=== PATIENT | female | born 1945 | race Asian ===

== ENCOUNTER 2019-10-14 00:17 | Emergency (ER) | payer MEDICAID, MEDICARE, OTHER ==
[~2019-10-14] VITALS: Ht 154.9 cm; Wt 71.8 kg
[2019-10-14] MEDS ORDERED: RANI150T7 PO (00:38)
[2019-10-14] MEDS ORDERED: LOSA50TA64 PO (00:38)
[2019-10-14] MEDS ORDERED: NITR0.4T50 SL (00:38)
[2019-10-14] MEDS ORDERED: NPH,100V SQ (00:38)
[2019-10-14] MEDS ORDERED: VITAD400 PO (00:38)
[2019-10-14] MEDS ORDERED: DILT120C43 PO (00:38)
[2019-10-14] MEDS ORDERED: ATOR20TA86 PO (00:38)
[2019-10-14] MEDS ORDERED: ALBU8HFA NASAL (00:38)
[2019-10-14] MEDS ORDERED: PRED5DRO25 OU (00:38)
[2019-10-14 00:57] LABS: GLUCOSE,POINT OF CARE 263 MG/DL (70-110)
[2019-10-14] MEDS ORDERED: MAG HYDROX/AL HYDROX/SIMETH 30 ML SUSP UDCUP PO ONE (01:15)
[2019-10-14] MEDS ORDERED: FAMOTIDINE 10 MG/ML 2 ML VIAL IVP ONE (01:15)
[2019-10-14 01:24] LABS: BASOPHILS % (AUTO) 0.9 % (0.0-2.0); EOSINOPHILS % (AUTO) 3.5 % (1.0-6.0); HEMATOCRIT 42.4 % (36-46); HEMOGLOBIN 14.1 g/dL (12.0-16.0); LYMPHOCYTES # (AUTO) 2.1 K/uL (1.0-4.8); LYMPHOCYTES % (AUTO) 31.3 % (22.0-44.0); MEAN CORPUSCULAR HEMOGLOBIN 30.7 pg (26.0-34.0); MEAN CORPUSCULAR HGB CONC 33.2 G/dL (31.0-37.0); MEAN CORPUSCULAR VOLUME 93 fL (80-100); MONOCYTES # (AUTO) 0.5 K/uL (0.1-1.0); MONOCYTES % (AUTO) 7.4 % (2.0-9.0); NEUTROPHILS # (AUTO) 3.8 K/uL (1.8-7.7); NEUTROPHILS % (AUTO) 56.9 % (40.0-70.0); PLATELET COUNT (AUTO) 194 K/uL (150-450); RED BLOOD CELL COUNT(AUTO) 4.58 MIL/uL (4.00-5.20); RED CELL DISTRIBUTION WIDTH 13.5 % (11.5-14.5)
[2019-10-14 01:37] LABS: PROTHROMBIN TIME 9.8 SEC (9.4-11.6)
[2019-10-14 01:50] LABS: CALCIUM, TOTAL 9.2 mg/dL (8.8-10.5); CREATININE 1.11 mg/dL (0.60-1.30); POTASSIUM 4.8 mmol/L (3.5-5.1)
[2019-10-14 01:56] LABS: ALBUMIN 3.2 g/dL (3.4-5.0); BILIRUBIN,TOTAL 0.2 mg/dL (0.1-1.0); TOTAL PROTEIN, SERUM 7.2 g/dL (6.4-8.2)
[2019-10-14] MEDS ORDERED: NITROGLYCERIN 0.4 MG SUBLINGUAL TABLET #25 SL ONE (02:15)
[2019-10-14] MEDS ORDERED: LOSARTAN POTASSIUM 50 MG TABLET PO ONE (02:15)
[2019-10-14 02:41] LABS: APPEARANCE,URINE CLEAR (CLEAR); BILIRUBIN,URINE NEGATIVE (NEGATIVE); GLUCOSE, URINE (UA) >=1000 mg/dL (NEGATIVE); KETONES,URINE NEGATIVE (NEGATIVE); LEUKOCYTE ESTERASE ,URINE NEGATIVE (NEGATIVE); NITRATE,URINE NEGATIVE (NEGATIVE); OCCULT BLOOD,URINE TRACE (NEGATIVE); PH,URINE 6.5 (5.0-8.0); PROTEIN,URINE SEE CONFIRM (NEGATIVE); UROBILINOGEN,URINE 0.2 mg/dL (<=1.0)
[2019-10-14 02:55] LABS: BACTERIA,URINE Rare /HPF (None Seen); RBC,URINE 0-2 /HPF (0-2); SQUAMOUS EPITHELIAL CELL,UR Few /LPF (None Seen); WBC,URINE 0-2 /HPF (0-5)
[2019-10-14 02:56] LABS: SULFOSALICYLIC ACID,URINE 2+ (Negative)
[2019-10-14 02:58] VITALS: BP 180/72
== END 2019-10-14 03:35 | disposition short-term general hospital (02) ==
LOC: EMS 00:18
DX: R07.9 Chest pain, unspecified (principal); F17.210 Nicotine dependence, cigarettes, uncomplicated; J45.909 Unspecified asthma, uncomplicated; I25.10 Atherosclerotic heart disease of native coronary artery without angina pectoris; E11.9 Type 2 diabetes mellitus without complications; K21.9 Gastro-esophageal reflux disease without esophagitis; I10 Essential (primary) hypertension; I25.2 Old myocardial infarction; F32.9 Major depressive disorder, single episode, unspecified; Z79.4 Long term (current) use of insulin; Z88.8 Allergy status to other drugs, medicaments and biological substances; Z88.6 Allergy status to analgesic agent; Z88.1 Allergy status to other antibiotic agents; Z91.041 Radiographic dye allergy status
CPT/HCPCS: 36415; 71045; 80053; 81001; 82550; 82962; 83880; 84484; 85025; 85610; 85730; 93005; 96374; 99285; J3490

== ENCOUNTER 2022-09-30 05:21 | Emergency (ER) | payer SELFPAY ==
[~2022-09-30] VITALS: Ht 149.9 cm; Wt 63.6 kg
[~2022-09-30 05:21] MED LIST: ALBU8HFA NASAL; ATOR20TA86 PO; CHOL400T56 PO; DILT120C43 PO; LOSA-382 PO; NITR0.4T50 SL; NPH,100V SQ; PRED5DRO25 OU; RANI150T7 PO
[2022-09-30] MEDS ORDERED: EPINEPHrine 1:10,000 [1 MG/10 ML] SYRINGE IVP ONE (05:24)
[2022-09-30] MEDS ORDERED: SODIUM BICARBONATE [ADULT] 8.4% 50 MEQ/50 ML SYRINGE IVP ONE (05:24)
[2022-09-30 06:04] VITALS: BP 0/0
== END 2022-09-30 09:00 ==
LOC: EMS 05:23 → EDBD 05:23 → MERGE 05:23 → EMS 09:00
DX: I46.9 Cardiac arrest, cause unspecified (principal)
CPT/HCPCS: 99285; 92950; J0171; J3490; 99283